=== PATIENT | female | born 1950 | race American Indian/Alaskan Native ===

== ENCOUNTER 2018-09-26 10:49 | Outpatient (CLI) | payer MEDICARE | END 2018-09-26 10:50 | disposition home or self-care (01) | LOC: C.LAB 10:49 | DX: E11.9 Type 2 diabetes mellitus without complications (principal) ==

== ENCOUNTER 2018-12-20 09:52 | Outpatient (CLI) | payer MEDICARE | END 2018-12-20 09:53 | disposition home or self-care (01) | LOC: C.LAB 09:52 | DX: E11.9 Type 2 diabetes mellitus without complications (principal) ==